=== PATIENT | female | born 1945 | race Asian ===

== ENCOUNTER → 2016-10-07 | Outpatient (CLI) | payer MEDICARE, OTHER ==
[~2016-10-07] MED LIST: ALBU8.5H3 IH; ALEN70TA48 PO; ASPI-556 PO; ATOR40TA28 PO; CARV6 PO; FLUT1DIS3 IH; INSU100C4 SQ; METF500T4 PO; SITA100 PO; TELM20 PO; TIOT185 IH
== END | disposition home or self-care (01) ==
LOC: RADPV 08:40
PROVIDERS: ATTEND Internal Medicine Geriatric Medicine
DX: M79.641 Pain in right hand (principal); M25.521 Pain in right elbow